=== PATIENT | female | born 1985 | race Two or more races ===

== ENCOUNTER 2019-05-14 18:18 | Emergency (ER) | payer OTHER ==
[2019-05-14 18:32] VITALS: BP 120/84; PULSE 108; TEMP 97.8; BMI 32.8
[2019-05-14 19:44] LABS: RBC 3.78 M/mm3 (3.60-5.2)
[2019-05-14 19:47] LABS: HEMATOCRIT 32.3 % (32.4-45.2); HEMOGLOBIN 10.7 GM/dl (10.7-15.3); MCH 28.4 pg (25.7-33.7); MCHC 33.3 g/dl (32.0-36.0); MEAN CELL VOLUME 85.5 fl (80-96); MEAN PLT VOLUME 9.7 fl (7.5-11.1); PLATELET COUNT 230 K/MM3 (134-434); RDW 12.3 % (11.6-15.6); WHITE BLOOD COUNT 7.6 K/mm3 (4.0-10.8)
[2019-05-14 19:48] LABS: ALBUMIN 2.9 g/dl (3.4-5.0); BILIRUBIN,TOTAL 0.4 mg/dl (0.2-1); CALCIUM 9.1 mg/dl (8.5-10); CREATININE 0.4 mg/dl (0.55-1.3); POTASSIUM 3.9 mmol/L (3.5-5.1); TOT PROT 6.5 g/dl (6.4-8.2)
[2019-05-14] MEDS ORDERED: hydrOXYzine PAMOATE 25 MG CAPSULE (FP) PO ONE ×2 (20:27→20:33)
--- NOTE | 2019-05-15 01:36 | PDOC ---
Documentation entered by Lorri Winter SCRIBE, acting as scribe for Michelle Swain MD. Michelle Swain MD: This documentation has been prepared by the robbieibeMoy Aiswarya, SCRIBE, under my direction and personally reviewed by me in its entirety. I confirm that the documentation accurately reflects all work, treatment, procedures, and medical decision making performed by me. History of Present Illness - General Chief Complaint: Itching Stated Complaint: ITCHING Time Seen by Provider: 05/14/19 19:15 - History of Present Illness Initial Comments: This 33-year-old [id number], third trimester (LMP 10/18/2018 EDC 07/25/2019 ), presents to the ER with persistent pruritus for the last several days. She had been seen by her doctorate of chiropractic, Dr. Delong with pruritus earlier in the week but was unable to see him earlier today prior to his leaving the area until next Monday (05/20). Patient states that she has taken 1 dose of Benadryl earlier today and had partial relief but now has recurrent generalized pruritus , especially severe on distal extremities. No rash, fever, nausea/vomiting ( other than mild baseline nausea). She has been having very dark urine for several days; she denies jaundiced skin or eyes. Patient has had previous pregnancies but no significant pruritus during either. 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 [employer] Past History - Past Medical History Allergies/Adverse Reactions: Allergies Allergy/AdvReac Type Severity Reaction Status Date / Time meperidine [From Demerol] Allergy Hives Verified 05/14/19 18:26 Home Medications: Ambulatory Orders Pnv No.121/Iron/Folic Acid [ Multivitamin Tablet] 1 each PO DAILY hydrOXYzine PAMOATE [Vistaril -] 25 mg PO TID PRN #15 capsule 05/14/19 COPD: No Other medical history: - Surgical History Cholecystectomy: Yes - Reproductive History Is Patient Now?: Yes (#): 5 Para: 4 - Psycho Social/Smoking Cessation Hx Smoking History: Never smoked Have you smoked in the past 12 months: No Information on smoking cessation initiated: No Hx Alcohol Use: No Review of Systems - Review of Systems Able to Perform ROS?: Yes Comments:: 12 point review of systems is negative except for what is noted in the history of present illness *Physical Exam - Vital Signs Last Vital Signs Temp Pulse Resp BP Pulse Ox 97.8 F 108 H 20 120/84 99 05/14/19 18:18 05/14/19 18:18 05/14/19 18:18 05/14/19 18:18 05/14/19 18:18 - Physical Exam Comments: GENERAL: Adult female, alert and oriented x3, in mild distress secondary to pruritus HEAD: Normal with no signs of trauma. EYES: PERRLA, EOMI, sclera anicteric, conjunctiva clear. ENT: Ears normal, nares patent, oropharynx clear without exudates. Moist mucous membranes. NECK: Normal range of motion, supple without lymphadenopathy, JVD, or masses. LUNGS: Breath sounds equal, clear to auscultation bilaterally. No wheezes, and no crackles. HEART:Regular rate and rhythm, normal S1 and S2 without murmur, rub or gallop. ABDOMEN:.normal bowel sounds; gravid without guarding,tenderness or rebound.No masses EXTREMITIES: Normal range of motion, no edema. No clubbing or cyanosis. No erythema, or tenderness. Scattered healing excoriations distal upper and lower extremities NEUROLOGICAL: Cranial nerves II through XII grossly intact. Normal speech. No focal neurological deficits. SKIN: No rash evident; no lesions evident except for noninflamed, well-healing shallow excoriations of the distal extremities as noted above ED Treatment Course - LABORATORY CBC & Chemistry Diagram: 05/14/19 19:15 05/14/19 19:15 - ADDITIONAL ORDERS Additional order review: Laboratory Results 05/14/19 05/14/19 19:15 19:15 Sodium 137 Potassium 3.9 Chloride 110 H Carbon Dioxide 22 Anion Gap 5 L BUN 6.0 L Creatinine 0.4 L Est GFR (CKD-EPI)AfAm 159.73 Est GFR (CKD-EPI)NonAf 137.82 Random Glucose 78 Calcium 9.1 Total Bilirubin 0.4 Direct Bilirubin 0.1 AST 50 H ALT 96 H Alkaline Phosphatase 251 H Total Protein 6.5 Albumin 2.9 L 05/14/19 19:15 RBC 3.78 MCV 85.5 MCHC 33.3 RDW 12.3 MPV 9.7 Medical Decision Making - Medical Decision Making This 33-year-old woman, third trimester presents with several day history of generalized pruritus without systemic signs or rash. She has been seen by her doctorate of chiropractic, Dr. Delong and has been taking Benadryl with partial relief. She presents for further evaluation. Differential diagnosis of this pruritus without associated rash or systemic symptoms includes pruritis secondary to cholestasis of or pruritus gravidarum (without elevation of bile acids or abnormalities in LFTs). CBC and chemistry profile was sent: Mild elevation of transaminases and alkaline phosphatase as well as mild anemia evident. Bile acid determination was not initially sent, since this test is sent to an outside laboratory and will take 2 to 3 days to complete. However, after reviewing the results of the CBC and chemistry profile with Dr. Delong ( reached by telephone out of town), bile acid levels are required for specific treatment of cholestasis of pruritus. Therefore, this test was added and will be pending for 2 to 3 days. Results discussed with the patient. She will be given hydroxyzine 25 mg by mouth now and prescription sent to her pharmacy. Meanwhile, while Dr. Delong is out of town, she should follow-up with his partner, Dr. Boyle with whom the patient is familiar. She should call the office tomorrow and arrange follow -up within the next 2 to 3 days. Discharge - Discharge Information Problems reviewed: Yes Clinical Impression/Diagnosis: Pruritus, Third trimester Condition: Stable Disposition: HOME - Additional Discharge Information Prescriptions: hydrOXYzine PAMOATE [Vistaril -] 25 mg PO TID PRN #15 capsule PRN Reason: For Itching - Follow up/Referral Referrals: Octavio Boyle MD [Staff Physician] - 2 Days - Patient Discharge Instructions Patient Printed Discharge Instructions: DI for Itching Additional Instructions: Hydroxyzine 25 mg up to 3 times a day as needed for itching Return to ER if you have nausea/vomiting, develop pain or if itching is severe Follow-up with within the next 2 to 3 days - Post Discharge Activity
== END 2019-05-14 20:41 | disposition home or self-care (01) ==
LOC: FER 18:18
DX: L29.9 Pruritus, unspecified (principal); O26.893 Other specified pregnancy related conditions, third trimester; Z88.8 Allergy status to other drugs, medicaments and biological substances
CPT/HCPCS: 36415; 80053; 82248; 82542; 85027; 99283-25

== ENCOUNTER 2019-07-03 08:15 | Inpatient (IN) | payer OTHER ==
[2019-07-03] MEDS ORDERED: OXYTOCIN 30 UNITS in 0.9% NS 30 UNIT/500 ML INFUS.BAG IVPB SCH (09:00)
[2019-07-03 09:10] LABS: BASO % 0.5 % (0-2.0); EOS % 0.9 % (0-4.5); HEMATOCRIT 30.7 % (32.4-45.2); HEMOGLOBIN 10.4 GM/dL (10.7-15.3); LYMPH % 19.2 % (8-40); MCH 27.9 pg (25.7-33.7); MCHC 33.7 g/dl (32.0-36.0); MEAN CELL VOLUME 82.8 fl (80-96); MEAN PLT VOLUME 10.5 fl (7.5-11.1); MONO % 10.5 % (3.8-10.2); NEUT % 68.9 % (42.8-82.8); PLATELET COUNT 193 K/MM3 (134-434); RBC 3.71 M/mm3 (3.60-5.2); WHITE BLOOD COUNT 6.2 K/mm3 (4.0-10.0)
--- NOTE | 2019-07-03 09:24 | HP ---
Past Medical History - Primary Care Physician PCP:: Ben Delong E - Admission History of Present Illness: Admitted for induction. P3, 37 wks. CHOLESTASIS OF , deteriorating, with severe pruritus, worsening labs and pelvic pain. MFM consultation done, in agreement. On Ursodiol, hydroxyzine. History Source: Patient, Caregiver Limitations to Obtaining History: No Limitations - Past Medical History Cardiovascular: No: AFIB, Aneurysm, Aortic Insufficiency, Aortic Stenosis, CAD, CHF, Deep Vein Thrombosis, HTN, Hyperlipdemia, LA, Mitral Insufficiency, Mitral Stenosis, Murmur, Pulmonary Hypertension, Other Pulmonary: No: Asthma, Bronchitis, Cancer, COPD, O2 Dependent, Pneumonia, Previously Intubated, Pulmonary Embolus, Pulmonary Fibrosis, Sleep Apnea, Other Gastrointestinal: No: Ascites, Cancer, Constipation, Crohn's Disease, Diverticulitis, Diverticulosis (cholestasis), Esophageal Varices, Gastritis, GERD, GI Bleed, Hemorrhoids, Hiatal Hernia, Inflamatory Bowel Disease, Irritable Bowel Disease, Pancreatitis, Peptic Ulcer Disease, Ulcerative Colitis , Other Renal/: No: Renal Failure, Renal Inusuff, BPH, Cancer, Hematuria, Hemodialysis , Neurogenic Bladder, Renal Calculi, UTI, Other Reproductive: No: Ectopic , Endometriosis, Fibroids, PID, Polycystic Ovary Syndrome, Postmenopausal, Other Heme/Onc: No: Anemia, B12 Deficiency, Bleeding Disorder, Cancer, Current Chemotherapy, Current Radiation Therapy, Hemochromatosis, Hypercoaguable State, Myeloproliferative Synd, Sickle Cell Disease, Sickle Cell Trait, Thrombocytopenia, Other Psych: No: Addictions, Anxiety, Bipolar, Depression, Panic, Psychosis, Schizophrenia, Other Musculoskeletal: No: Bursitis, Chronic low back pain, Hemiparesis, Hemiplegia, Osteoarthritis, Paraplegia, Other Rheumatology: No: Fibromyalgia, Gout, Lupus, Rheumatoid Arthritis, Sarcoidosis, Vasculitis, Other Endocrine: No: Gopi's Disease, Denys's Disease, Diabetes Insipidus, Diabetes Mellitus, Hyperparathyroidism, Hyperthyroidism, Hypothyroidism, Osteopenia, SIADH, Other Dermatology: No: Basal Cell, Cellulitis, Eczema, Melanoma, Psoriasis, Squamous Cell, Other - Past Surgical History Past Surgical History: No: None, AAA Repair, AICD, Amputation, Appendectomy, Arthrosocopy, AV Fistula/Graft, Bariatric Surgery, Breast Biopsy, Bypass, CABG, Carotid Endarterectomy, Cataract Removal, Cholecystectomy, Colectomy, Colonoscopy, Colostomy, Craniotomy, , Cystectomy, Hernia Repair, Hysterectomy, Ileal Conduit, Ileosotomy, Joint Replacement, Kidney Transplant, Laminectomy, Liver Transplant, Mastectomy, Nephrectomy, Oopherectomy, Orchiectomy, Permanent Pacemaker, Prostatectomy, Splenectomy, Stent, Thoracotomy , TURP, Tonsillectomy, Tubal Ligation, Upper Endoscopy, Valve Replacement, Vasectomy, Vein Stripping/Ligation Hx Myomectomy: No Hx Transabdominal Cerclage: No - Smoking History Smoking history: Never smoked Have you smoked in the past 12 months: No - Alcohol/Substance Use Hx Alcohol Use: No Home Medications - Allergies Allergies/Adverse Reactions: Allergies Allergy/AdvReac Type Severity Reaction Status Date / Time meperidine [From Demerol] Allergy Severe Hives Verified 06/25/19 08:34 shellfish derived Allergy Severe Hives Verified 06/25/19 08:34 - Home Medications Home Medications: Ambulatory Orders Pnv No.121/Iron/Folic Acid [ Multivitamin Tablet] 1 each PO DAILY hydrOXYzine PAMOATE [Vistaril -] 25 mg PO TID PRN #15 capsule 05/14/19 Ursodiol 500 mg PO DAILY 06/04/19 Review of Systems - Review of Systems Constitutional: denies: No Symptoms, Chills, Diaphoresis, Fever, Lethargy, Loss of Appetite, Malaise, Night Sweats, Unintentional Wgt. Loss, Weakness, Other Eyes: denies: No Symptoms, Blind Spots, Blurred Vision, Double Vision, Eye Pain , Floaters, Photophobia, Recent Change in Vision, Other HENT: denies: No Symptoms, Difficult Swallowing, Ear Discharge, Ear Pain, Epistaxis, Gingival Bleeding, Hearing Loss, Mouth Swelling, Nasal Congestion, Ocular Prosthesis, Throat Pain, Toothache, Ringing in Ears, Other Neck: denies: No Symptoms, Decreased ROM, Lumps, Pain on Movement, Stiffness, Swollen Glands, Tenderness, Other Cardiovascular: denies: No Symptoms, Chest Pain, Edema, Palpitations, Shortness of Breath, Other Respiratory: denies: No Symptoms, Cough, Exercise Intolerance, Hemoptysis, Orthopnea, PND (pelvic pain, deteriorating), Snoring, SOB, SOB on Exertion, Wheezing, Other Gastrointestinal: denies: No Symptoms, Abdominal Pain, Bloating, Constipation, Diarrhea, Dysphagia, Indigestion, Melena, Nausea, Rectal Bleeding, Vomiting, Vomiting Blood, Other Physical Exam - Maternity Constitutional: Yes: Well Nourished, No Distress, Calm Eyes: Yes: WNL, Conjunctiva Clear, EOM Intact HENT: Yes: WNL, Atraumatic, Normocephalic Neck: Yes: WNL, Supple, Trachea Midline Cardiovascular: Yes: WNL, Regular Rate and Rhythm Breast(s): Yes: WNL - Abdominal Exam/OB Number of Fetuses: Single Presentation: Vertex Contractions: No Monitor Mode: External Heart Rate (range): 138 Heart Rate Location: [facility] Category: I Accelerations: Uniform - Vaginal Exam/OB Vaginal Bleediing: No Speculum Exam: No Dilatation (cm): 1 Effacement (%): 20 Amniotic Membrane Status: Intact Station: -2 - Physical Exam Musculoskeletal: Yes: WNL Deep Tendon Reflex Grade: Normal +2 ...Motor Strength: WNL Psychiatric: Yes: WNL - Labs Lab Results: CBC, BMP 07/03/19 08:50 Imaging - Results Ultrasound: Report Reviewed (BPP 04/25.) Problem List - Problems (1) 37 weeks gestation of Code(s): Z3A.37 - 37 WEEKS GESTATION OF (2) Cholestasis during , antepartum Code(s): O26.619 - LIVER AND BILIARY TRACT DISORD IN , UNSP TRIMESTER; K83.1 - OBSTRUCTION OF BILE DUCT Assessment/Plan 37 weeks of gestation. Cholestatsis, deteriorating. Severe pruritus. BPP 04/25. On Ursodiol, hydroxyzine. Given betamethazone. For induction today. All fully discussed. MFM consult obtained with F/U. Patient understands and agrees with the plan. Pitocin started at 09:30 hrs.
[2019-07-03 09:32] LABS: BLOOD UREA NITROGEN 5.6 mg/dL (7-18); CALCIUM 9.1 mg/dL (8.5-10.1); CREATININE 0.6 mg/dL (0.55-1.3); POTASSIUM 3.6 mmol/L (3.5-5.1)
[2019-07-03 09:43] LABS: INR 1.05 (0.83-1.09); PROTHROMBIN TIME (PATIENT) 12.4 SEC (9.7-13.0)
[2019-07-03 09:46] LABS: ACTIVATED PTT 29.5 SECONDS (25.2-36.5)
[2019-07-03 09:49] VITALS: BMI 33.9
[2019-07-03] MEDS ORDERED: LACTATED RINGERS SOLUTION 1,000 ML IV SCH (11:30)
--- NOTE | 2019-07-03 15:10 | PN ---
Progress Note, Labor Vaginal Exam #2 Labor Exam Date: 07/03/19 Labor Exam Time: 14:50 Heart Rate (range): 140 Dilatation: 2 Effacement (%): 20 Station: -1 (AROM - clear.)
[2019-07-03] MEDS ORDERED: FENTANYL/BUPIVACAINE/NS/PF - PCEA - 50 ML DISP.SYRIN EP ONE ×2 (15:26→20:06)
[2019-07-03] MEDS ORDERED: NALOXONE HCL 0.4 MG/ML VIAL IVPUSH PRN (15:33)
[2019-07-03] MEDS ORDERED: BUPIVACAINE HCL/PF 0.5% (5 MG/ML) 30 ML VIAL IJ ONE (15:37)
[2019-07-03] MEDS ORDERED: LIDO 2%/EPI 1:200000 PRESRVFRE (20 ML SDVIAL) ONE (15:37)
[2019-07-03] MEDS: ELECTROLYTE-148 SOLN 1,000 ML IV SCH ×2 (15:40→16:32)
[2019-07-03] MEDS ORDERED: FENTANYL/BUPIVACAINE/NS/PF - PCEA - 50 ML DISP.SYRIN EP SCH (15:45)
--- NOTE | 2019-07-03 19:07 | PN ---
Progress Note, Labor Vaginal Exam #3 Labor Exam Date: 07/03/19 Labor Exam Time: 18:50 Heart Rate (range): 140 Dilatation: 3 Effacement (%): 20 Amniotic Membrane Status: Ruptured Presentation: Vertex/Position Station: -2 (Discussed options w patient. Will d/c Pitocin and resume early in AM. Afebrile. Excellent FH w accelerations.)
[2019-07-03] MEDS ORDERED: diphenhydrAMINE HCL 25 MG CAPSULE (FP) PO ONE ×2 (21:48→22:00)
[2019-07-04] MEDS ORDERED: FENTANYL/BUPIVACAINE/NS/PF - PCEA - 50 ML DISP.SYRIN EP ONE ×2 (01:08→05:41)
[2019-07-04] MEDS ORDERED: OXYTOCIN 30 UNITS in 0.9% NS 30 UNIT/500 ML INFUS.BAG IVPB SCH (07:45)
[2019-07-04] MEDS ORDERED: SODIUM CHLORIDE 100 ML IVPB ONE (08:15)
[2019-07-04] MEDS ORDERED: AMPICILLIN SODIUM 2 GM VIAL ONE (08:15)
--- NOTE | 2019-07-04 08:23 | PN ---
Progress Note, Labor Vaginal Exam #3 Labor Exam Date: 07/04/19 Labor Exam Time: 08:15 Heart Rate (range): 136 Dilatation: 3 Effacement (%): 20 Amniotic Membrane Status: Ruptured Presentation: Vertex/Position Station: -2 (Abx started.)
[2019-07-04] MEDS ORDERED: AMPICILLIN - 2 GM in SODIUM CHLORIDE 100 ML IVPB ONE (08:45)
[2019-07-04] MEDS ORDERED: CITRIC ACID/SODIUM CITRATE 30 ML UNIT-DOSE CUP PO ONE (09:39)
[2019-07-04] MEDS: ACETAMINOPHEN 1000 MG/100 ML VIAL (NON FORMULARY) IVPB PRN ×2 (09:45→21:30)
[2019-07-04] MEDS: ELECTROLYTE-148 SOLN 1,000 ML IV SCH (09:55)
[2019-07-04] MEDS ORDERED: IBUPROFEN 600 MG TABLET (FP) PO PRN ×2 (10:37→11:22)
[2019-07-04] MEDS ORDERED: ONDANSETRON 4 MG/2 ML VIAL IVPUSH PRN (10:37)
[2019-07-04] MEDS ORDERED: ACETAMINOPHEN 325 MG TABLET (FP) PO PRN (10:37)
[2019-07-04] MEDS ORDERED: OXYTOCIN 20 UNITS in 0.9% NS 20 UNIT/1,000 ML INFUS.BAG IV ONE ×2 (11:04→16:39)
--- NOTE | 2019-07-04 11:19 | PN ---
Progress Note, Labor Vaginal Exam #5 Labor Exam Date: 07/04/19 Labor Exam Time: 09:45 Heart Rate (range): 190 Dilatation: 3 Amniotic Membrane Status: Leaking Presentation: Vertex/Position Station: -2 (Tachykardia. Pt. is shivering. Impending chorioamnionitis. Nio progress. Will procede w c/section. Pt. understands and consents.)
[2019-07-04] MEDS ORDERED: oxyCODONE HCL 5 MG TABLET PO PRN (11:22)
[2019-07-04] MEDS ORDERED: METHYLERGONOVINE MALEATE 0.2 MG/1 ML AMP IM PRN (11:22)
--- NOTE | 2019-07-04 11:22 | PN ---
Delivery - Delivery Section: Primary Type of Anesthesia: Spinal EBL (cc): 650 Delivery, Single - Stages of Labor Date of Delivery: 07/04/19 - Condition of Awake Overnight Counselor/Customer Counter Associate Present: Yes Gender: Female Position: Left, OA - 1 Minute Total Score: 9 5 Minutes Total Score: 9 - Feeding Plan Initial Plan: Elected not to breastfeed exclusively throughout hospitalization Remarks - Remarks Remarks: Primary c/section. Female,7 lbs 2 oz. No complications.
[2019-07-04] MEDS ORDERED: ACETAMINOPHEN 1000 MG/100 ML VIAL (NON FORMULARY) IVPB PRN (11:26)
[2019-07-04] MEDS ORDERED: IBUPROFEN 800 MG/8 ML IJ IVPB ONE ×2 (12:24→12:27)
[2019-07-04] MEDS ORDERED: OXYTOCIN 20 UNITS in 0.9% NS 1000 ML INFUS.BAG IV ONE (13:26)
[2019-07-04] MEDS ORDERED: KETOROLAC TROMETHAMINE 30 MG/1 ML VIAL IVPUSH PRN (13:27)
--- NOTE | 2019-07-04 13:58 | OP ---
DATE OF OPERATION: DATE OF DICTATION: 07/03/2019 PREOPERATIVE DIAGNOSES: 1. Intrauterine at 37 weeks. 2. Cholestasis of . 3. Failed induction, arrest of labor, impending chorioamnionitis. POSTOPERATIVE DIAGNOSES: 1. Intrauterine at 37 weeks. 2. Cholestasis of . 3. Failed induction, arrest of labor, impending chorioamnionitis. PROCEDURE: Primary, low segment, transverse section. ANESTHESIOLOGIST: Jf James MD ANESTHESIA: Spinal. SURGEON: Ben Cade MD INDUST[employer] MECHANIC: PITO Gibson PROCEDURE AND FINDINGS: Under excellent spinal block in dorsal supine position, patient was prepped and draped in the normal fashion. Abdomen was entered through Pfannenstiel incision that was carried through the subcutaneous tissue and fascia transversely. Recti muscles were dissected off the fascia in the midline, and peritoneum was entered vertically. Term uterus was noted with lower uterine segment bulging with baby's head above the symphysis. Lower uterine segment was fairly thin. Bladder flap was incised and peeled downward. Hysterotomy was performed transversely and extended with bandage scissors. Clear amniotic fluid was noted. Female live was delivered, cried, and breathed spontaneously. Baby was given Apgars 9, 9. Baby's weight was 7 pounds 2 ounces. Placenta was removed, and uterine cavity was cleaned. Hysterotomy was closed with continuous running Biosyn 0 interlocking suture. Hemostasis was excellent. Uterus was placed anatomically in abdomen. Lavage was carried out. Hemostasis was again rechecked. Count was correct. Abdomen was closed in layers with peritoneum closed with continuous running Biosyn 2-0, fascia was continuous running Vicryl 1 sutures, subcutaneous tissue was approximated with interrupted 2-0 Biosyn sutures, and skin was closed with subcuticular V-Lock 4-0 running suture and Steri-Strips. Sterile dressing was applied and held with a binder. Urine was clear in the Askew catheter bag. Estimated blood loss was 650 mL. Patient was transferred to PACU stable and comfortable. BEN CADE MD [id number] MTDD
[2019-07-04] MEDS ORDERED: AMPICILLIN - 1 GM in SODIUM CHLORIDE 100 ML IVPB SCH (14:00)
[2019-07-04] MEDS ORDERED: CEFAZOLIN 2 GM/D5W 2 GM/50 ML ML IVPB ONE (16:38)
[2019-07-04] MEDS: OXYTOCIN 20 UNITS in 0.9% NS 20 UNIT/1,000 ML INFUS.BAG IV SCH ×2 (16:53→23:00)
[2019-07-04] MEDS: CEFAZOLIN 2 GM/D5W 2 GM/50 ML ML IVPB SCH (17:31)
[2019-07-04] MEDS ORDERED: KETOROLAC TROMETHAMINE 30 MG/1 ML VIAL ONE (18:11)
[2019-07-04] MEDS ORDERED: ACETAMINOPHEN INJECTION 100 ML IVPB ONE (21:33)
[2019-07-05] MEDS ORDERED: CEFAZOLIN 2 GM/D5W 2 GM/50 ML ML IVPB ONE ×2 (00:26→10:58)
[2019-07-05] MEDS ORDERED: IBUPROFEN 800 MG/8 ML IJ IVPB ONE ×2 (01:03→01:30)
[2019-07-05] MEDS: CEFAZOLIN 2 GM/D5W 2 GM/50 ML ML IVPB SCH ×2 (02:10→10:45)
[2019-07-05] MEDS ORDERED: DEXTROSE 5%-LACTATED RINGERS 1,000 ML IV SCH (04:30)
[2019-07-05] MEDS ORDERED: ACETAMINOPHEN INJECTION 100 ML IVPB ONE (05:55)
[2019-07-05] MEDS: ACETAMINOPHEN 1000 MG/100 ML VIAL (NON FORMULARY) IVPB PRN (06:00)
[2019-07-05] MEDS ORDERED: oxyCODONE HCL 5 MG TABLET ONE ×2 (07:27→11:35)
[2019-07-05] MEDS ORDERED: IBUPROFEN 600 MG TABLET (FP) PO ONE ×2 (07:27→13:17)
[2019-07-05] MEDS: IBUPROFEN 600 MG TABLET (FP) PO PRN ×2 (07:40→18:42)
[2019-07-05 08:51] LABS: BASO % 0.3 % (0-2.0); EOS % 0.1 % (0-4.5); HEMATOCRIT 22.4 % (32.4-45.2); HEMOGLOBIN 7.6 GM/dL (10.7-15.3); LYMPH % 4.9 % (8-40); MEAN CELL VOLUME 82.4 fl (80-96); MEAN PLT VOLUME 10.3 fl (7.5-11.1); MONO % 6.8 % (3.8-10.2); NEUT % 87.9 % (42.8-82.8); PLATELET COUNT 126 K/MM3 (134-434); RBC 2.72 M/mm3 (3.60-5.2); WHITE BLOOD COUNT 6.4 K/mm3 (4.0-10.0)
--- NOTE | 2019-07-05 09:00 | PN ---
Progress Note, Physician Chief Complaint: s/p c section under spinal anesthesia History of Present Illness: post op day one, with duramorph for post op pain control - Current Medication List Current Medications: Active Medications Acetaminophen (Ofirmev Injection -) 1,000 mg IVPB Q6H PRN PRN Reason: FEVER Last Admin: 07/05/19 06:00 Dose: 1,000 mg Acetaminophen (Tylenol -) 650 mg PO Q4H PRN PRN Reason: PAIN 1-3; IF MOTRIN NOT WORK Bisacodyl (Dulcolax Suppository -) 10 mg RC PRN PRN PRN Reason: CONSTIPATION Diphenhydramine HCl (Benadryl Injection -) 25 mg IVPUSH Q4H PRN PRN Reason: Pruritis Last Admin: 07/05/19 02:50 Dose: 25 mg Cefazolin Sodium/Dextrose (Ancef 2 Gm Premixed Ivpb -) 2 gm in 50 mls @ 100 mls /hr IVPB Q8H-IV FITO Stop: 07/05/19 17:59 Last Admin: 07/05/19 02:10 Dose: 100 mls/hr Dextrose/Lactated Ringer's (D5-Lr -) 1,000 mls @ 125 mls/hr IV ASDIR FITO Last Admin: 07/05/19 06:00 Dose: 125 mls/hr Ibuprofen (Motrin -) 600 mg PO Q4H PRN PRN Reason: PAIN LEVEL 1 - 3 Last Admin: 07/05/19 07:40 Dose: 600 mg Ketorolac Tromethamine (Toradol Injection -) 30 mg IVPUSH Q6H PRN PRN Reason: PAIN LEVEL 4 - 6 Stop: 07/05/19 13:26 Last Admin: 07/04/19 18:16 Dose: 30 mg Methylergonovine Maleate (Methergine Injection -) 0.2 mg IM Q4H PRN PRN Reason: Excessive Bleeding (L&D) Ondansetron HCl (Zofran Injection) 4 mg IVPUSH Q4H PRN PRN Reason: NAUSEA Oxycodone HCl (Roxicodone -) 5 mg PO Q6H PRN PRN Reason: PAIN LEVEL 7-10 Last Admin: 07/05/19 07:40 Dose: 5 mg Multivit/Folic Acid/Iron ( Vitamins (Sjr) -) 1 tab PO DAILY FITO Simethicone (Mylicon -) 80 mg PO Q4H PRN PRN Reason: GAS - Objective Vital Signs: Vital Signs Temperature 98.8 F 07/05/19 08:00 Pulse Rate 109 H 07/05/19 08:00 Respiratory Rate 20 07/05/19 08:00 Blood Pressure 115/72 07/05/19 08:00 O2 Sat by Pulse Oximetry (%) 99 07/04/19 12:45 Constitutional: Yes: Well Nourished, Mild Distress Cardiovascular: Yes: WNL Respiratory: Yes: WNL Gastrointestinal: Yes: WNL Labs: CBC, BMP 07/03/19 08:27 INR, PTT INR 1.05 (0.83-1.09) 07/03/19 08:50 Assessment/Plan patient complaining of pain this am not helped by 5 mg of oxycodone, also has fevers that is being treated by the primary team. advised nurse to give additional 5mg oxycodone, otherwise no further intervention from the dept of anesthesia at this time.
[2019-07-05] MEDS ORDERED: BENZOCAINE/MENTH/CETYLPYRD CL 1 EACH LOZENGE MM PRN (09:34)
[2019-07-05] MEDS ORDERED: oxyCODONE HCL 5 MG TABLET PO PRN (09:41)
--- NOTE | 2019-07-05 10:08 | PN ---
Progress Note (short form) - Note Progress Note: POD1, s/p c section Pt seen and examined in L&D room 5, reports significant abdo pain mildly improved with oral regimen. Had fevers overnight, improved with IV Tylenol. Was oob ambulating, voiding without issue, denies dysuria, foul odor. Tolerating small amounts of PO with no n/v. Denies cp/sob. Endorses sore throat and cold sxs since 2 days prior to delivery. Vital Signs Temp 98.8 F 07/05/19 08:00 Pulse 109 H 07/05/19 08:00 Resp 20 07/05/19 08:00 BP 115/72 07/05/19 08:00 Pulse Ox 99 07/04/19 12:45 Intake & Output 07/04/19 07/04/19 07/05/19 11:59 23:59 11:59 Intake Total 1999 2300 1375 Output Total 0064 992 9322 Balance 600 1900 -25 Intake: IV 2000 1850 925 NORMAL SALINE+20 UNITS 1850 925 OXYTOCIN - 20 unit In 1, 000 ml @ 125 mls/hr IV ASDIR FITO Rx#:[id number] Plasma-Lyte 148 - 1,000 2000 ml @ 500 mls/hr IV ASDIR FITO Rx#:[id number] IVPB 450 450 Output: Urine 9546 903 2170 Askew 6855 394 0478 Void 300 Other: Voiding Method Indwelling Catheter Toilet Weight 7 lb 2 oz Length 20 in CBC, BMP 07/05/19 08:07 07/03/19 08:27 Gen: awake, alert, nad Throat: no erythema noted Resp: unlabored on RA Abdo: binder in place, wound c/d/i, steristrips in place, no erythema or drainage noted. Abdo seems to be tender (pt refusing exam due to pain). +bowel sounds A/P: 33 y/o F admitted for induction at 37wks, pt with cholestasis of and worsening labs, pt failed trial of induction developed fevers with concern for chorioamnionitis now POD 1, s/p c section. ++ fevers overnight, tmax 103F at 1AM. No leukocytosis on morning labs H/H decreased (pt with significant blood loss during section) Endorses sore throat -RSV, influenza A&B, strep cultures ordered -UA with reflex ordered -ID consult- Dr Vidal (pt on 24 hrs of Ancef will likely need broad spectrum abx) -Continue IVF -Pain control as ordered -OOb ad birdie -Regular diet -If pt develops further fevers will order full fever workup -Cepachol ordered -Keep binder in place -Incentive spirometer q1hr -Will f/u this afternoon d/w attending Dr Delong
[2019-07-05] MEDS: DOCUSATE SODIUM 100 MG CAPSULE (FP) PO SCH ×2 (11:00→21:06)
[2019-07-05] MEDS: PRENATAL VITAMINS W/ FOLIC ACID TABLET (FP) PO SCH (11:00)
[2019-07-05] MEDS: FERROUS SO4 325 MG TABLET (FP) PO SCH (11:00)
[2019-07-05 11:18] LABS: EPI CELLS 25.7 /HPF (0-5/HPF); HYALINE CASTS 4 /lpf (0-8); PH,URINE 5.5 (5.0-8.0); URINE APPEARANCE CLOUDY; URINE BACTERIA 4.5 /hpf (NEGATIVE); URINE BILIRUBIN NEGATIVE (NEGATIVE); URINE COLOR RED; URINE GLUCOSE (UA) NEGATIVE (NEGATIVE); URINE KETONE NEGATIVE (NEGATIVE); URINE LEUK ESTERASE 1+ (NEGATIVE); URINE NITRITE NEGATIVE (NEGATIVE); URINE PROTEIN 2+ (NEGATIVE); URINE RBC 1633 /hpf (0-4); URINE UROBILINOGEN 0.2 mg/dL (0.2-1.0); URINE WBC 53 /hpf (0-5)
[2019-07-05] MEDS ORDERED: BISACODYL 10 MG SUPP.RECT RC PRN (11:22)
[2019-07-05] MEDS ORDERED: ACETAMINOPHEN 325 MG TABLET (FP) ONE (11:34)
[2019-07-05] MEDS: oxyCODONE HCL 5 MG TABLET PO PRN ×2 (12:06→18:41)
[2019-07-05] MEDS: ACETAMINOPHEN 325 MG TABLET (FP) PO PRN (12:06)
--- NOTE | 2019-07-05 12:41 | CON.ID ---
Consult Consult Specialty:: infectious diseases Referred by:: global category manager Reason for Consultation:: fever,throat pain - History of Present Illness Chief Complaint: fever,shivering throat pain History of Present Illness: relatively healthy 37 wks.preganant lady admitted for induction and had csection done for CHOLESTASIS OF , deteriorating, with severe pruritus, worsening labs and pelvic pain. MFM consultation done, in agreement. seems patient spiked fevers during delivery and is still spiking fever.also she was c/o of throat pain and the throat was infflamed. patient had rapid strep negative currently patient is shivering and says she does not feel well - History Source History Provided By: Patient Limitations to Obtaining History: No Limitations - Past Medical History Cardio/Vascular: No: AFIB, Aneurysm, Aortic Insufficiency, Aortic Stenosis, CAD , CHF, Deep Vein Thrombosis, HTN, Hyperlipdemia, [place], Mitral Insufficiency, Mitral Stenosis, Murmur, Pulmonary Hypertension, Other Pulmonary: No: Asthma, Bronchitis, Cancer, COPD, O2 Dependent, Pneumonia, Previously Intubated, Pulmonary Embolus, Pulmonary Fibrosis, Sleep Apnea, Other Gastrointestinal: No: Ascites, Cancer, Constipation, Crohn's Disease, Diverticulitis, Diverticulosis (cholestasis), Esophageal Varices, Gastritis, GERD, GI Bleed, Hemorrhoids, Hiatal Hernia, Inflamatory Bowel Disease, Irritable Bowel Disease, Pancreatitis, Peptic Ulcer Disease, Ulcerative Colitis , Other Renal/: No: Renal Failure, Renal Inusuff, BPH, Cancer, Hematuria, Hemodialysis , Neurogenic Bladder, Renal Calculi, UTI, Other ...LMP: 10/18/18 Psych: No: Addictions, Anxiety, Bipolar, Depression, Panic, Psychosis, Schizophrenia, Other Musculoskeletal: No: Bursitis, Chronic low back pain, Hemiparesis, Hemiplegia, Osteoarthritis, Paraplegia, Other Rheumatology: No: Fibromyalgia, Gout, Lupus, Rheumatoid Arthritis, Sarcoidosis, Vasculitis, Other Endocrine: No: Gopi's Disease, Denys's Disease, Diabetes Insipidus, Diabetes Mellitus, Hyperparathyroidism, Hyperthyroidism, Hypothyroidism, Osteopenia, SIADH, Other Dermatology: No: Basal Cell, Cellulitis, Eczema, Melanoma, Psoriasis, Squamous Cell, Other - Past Surgical History Past Surgical History: No: None, AAA Repair, AICD, Amputation, Appendectomy, Arthrosocopy, AV Fistula/Graft, Bariatric Surgery, Breast Biopsy, Bypass, CABG, Carotid Endarterectomy, Cataract Removal, Cholecystectomy, Colectomy, Colonoscopy, Colostomy, Craniotomy, , Cystectomy, Hernia Repair, Hysterectomy, Ileal Conduit, Ileosotomy, Joint Replacement, Kidney Transplant, Laminectomy, Liver Transplant, Mastectomy, Nephrectomy, Oopherectomy, Orchiectomy, Permanent Pacemaker, Prostatectomy, Splenectomy, Stent, Thoracotomy , TURP, Tonsillectomy, Tubal Ligation, Upper Endoscopy, Valve Replacement, Vasectomy, Vein Stripping/Ligation - Alcohol/Substance Use Hx Alcohol Use: No - Smoking History Smoking history: Never smoked Have you smoked in the past 12 months: No Home Medications - Allergies Allergies/Adverse Reactions: Allergies Allergy/AdvReac Type Severity Reaction Status Date / Time meperidine [From Demerol] Allergy Severe Hives Verified 07/03/19 09:33 shellfish derived Allergy Severe Hives Verified 07/03/19 09:33 - Home Medications Home Medications: Ambulatory Orders Pnv No.121/Iron/Folic Acid [ Multivitamin Tablet] 1 each PO DAILY Ursodiol 1 tab PO TID 06/04/19 Docusate Sodium [Colace] 100 mg PO BID #20 capsule 07/04/19 Ibuprofen 600 mg PO Q6H PRN #20 tablet 07/04/19 Iron,Carbonyl/Ascorbic Acid [Iron 100-Vitamin C Tablet] 1 each PO DAILY #30 tablet 07/04/19 oxyCODONE HCL [Roxicodone -] 5 mg PO Q6H PRN #15 tablet MDD 5 07/04/19 Review of Systems - Review of Systems Constitutional: reports: Chills, Fever Eyes: reports: No Symptoms HENT: reports: No Symptoms Neck: reports: Other (throat pain) Cardiovascular: reports: No Symptoms Respiratory: reports: No Symptoms Gastrointestinal: reports: Abdominal Pain Musculoskeletal: reports: No Symptoms Integumentary: reports: No Symptoms Neurological: reports: No Symptoms Endocrine: reports: No Symptoms Hematology/Lymphatic: reports: No Symptoms Psychiatric: reports: No Symptoms Physical Exam Vital Signs: Vital Signs Temperature 98.8 F 07/05/19 12:00 Pulse Rate 95 H 07/05/19 12:00 Respiratory Rate 20 07/05/19 12:00 Blood Pressure 135/86 07/05/19 12:00 O2 Sat by Pulse Oximetry (%) 99 07/04/19 12:45 Constitutional: Yes: Well Nourished, Calm, Mild Distress Eyes: Yes: Conjunctiva Clear, EOM Intact HENT: Yes: Atraumatic, Normocephalic Neck: Yes: Supple, Trachea Midline Cardiovascular: Yes: Regular Rate and Rhythm Respiratory: Yes: Regular, CTA Bilaterally Gastrointestinal: Yes: Normal Bowel Sounds, Soft Musculoskeletal: Yes: WNL Extremities: Yes: WNL Wound/Incision: Yes: Clean/Dry, Steri Strips, Dressing Dry and Intact Neurological: Yes: Alert, Oriented Psychiatric: Yes: Alert, Oriented Labs: CBC, BMP 07/05/19 08:07 07/03/19 08:27 Assessment/Plan this patient post delivery who has been spiking fevers now on cefazolin currently she is afebrile i have ordered a blood cx and also chest xray await for rest of the results will continue cefazolin for now if patient spikes fever please send blood cx again also monitor fever curve rest as per the team if spikes fever will broaden coverage
[2019-07-05] MEDS: PIPERACILLIN/TAZOB 3.375 GM 3.375 GM in DEXTROSE 5%-WATER - 50 ML IVPB SCH (17:29)
[2019-07-05] MEDS: SIMETHICONE 80 MG TAB.CHEW (FP) PO PRN (18:41)
[2019-07-06] MEDS: oxyCODONE HCL 5 MG TABLET PO PRN ×3 (00:14→21:13)
[2019-07-06] MEDS: SIMETHICONE 80 MG TAB.CHEW (FP) PO PRN ×4 (00:14→21:14)
[2019-07-06] MEDS: IBUPROFEN 600 MG TABLET (FP) PO PRN ×2 (00:15→05:44)
[2019-07-06] MEDS: PIPERACILLIN/TAZOB 3.375 GM 3.375 GM in DEXTROSE 5%-WATER - 50 ML IVPB SCH ×3 (01:43→23:03)
[2019-07-06] MEDS: ACETAMINOPHEN 325 MG TABLET (FP) PO PRN ×4 (01:43→21:12)
[2019-07-06 09:33] LABS: BASO % 0.3 % (0-2.0); EOS % 3.1 % (0-4.5); HEMATOCRIT 22.1 % (32.4-45.2); HEMOGLOBIN 7.3 GM/dL (10.7-15.3); LYMPH % 15.4 % (8-40); MCH 27.7 pg (25.7-33.7); MEAN CELL VOLUME 84.1 fl (80-96); MEAN PLT VOLUME 10.4 fl (7.5-11.1); MONO % 10.5 % (3.8-10.2); NEUT % 70.7 % (42.8-82.8); PLATELET COUNT 150 K/MM3 (134-434); RBC 2.63 M/mm3 (3.60-5.2); RDW 13.2 % (11.6-15.6); WHITE BLOOD COUNT 5.4 K/mm3 (4.0-10.0)
[2019-07-06] MEDS: POLYETHYLENE GLYCOL 3350 119 GM BTL PO SCH (09:47)
[2019-07-06] MEDS: DOCUSATE SODIUM 100 MG CAPSULE (FP) PO SCH ×2 (09:47→22:35)
[2019-07-06] MEDS: FERROUS SO4 325 MG TABLET (FP) PO SCH (09:48)
[2019-07-06] MEDS: PRENATAL VITAMINS W/ FOLIC ACID TABLET (FP) PO SCH (09:48)
[2019-07-06 10:10] LABS: ALBUMIN 1.8 g/dl (3.4-5.0); BILIRUBIN,TOTAL 0.2 mg/dL (0.2-1); BLOOD UREA NITROGEN 5.7 mg/dL (7-18); CALCIUM 7.9 mg/dL (8.5-10.1); CREATININE 0.6 mg/dL (0.55-1.3); POTASSIUM 3.6 mmol/L (3.5-5.1); TOT PROT 4.4 g/dl (6.4-8.2)
--- NOTE | 2019-07-06 11:43 | PN ---
Progress Note, Physician History of Present Illness: stable afebrile - Current Medication List Current Medications: Active Medications Acetaminophen (Ofirmev Injection -) 1,000 mg IVPB Q6H PRN PRN Reason: FEVER Last Admin: 07/05/19 06:00 Dose: 1,000 mg Acetaminophen (Tylenol -) 650 mg PO Q4H PRN PRN Reason: PAIN 1-3; IF MOTRIN NOT WORK Last Admin: 07/06/19 05:45 Dose: 650 mg Benzocaine/Menthol (Cepacol Lozenge -) 1 each MM PRN PRN PRN Reason: SORE THROAT Bisacodyl (Dulcolax Suppository -) 10 mg RC PRN PRN PRN Reason: CONSTIPATION Diphenhydramine HCl (Benadryl Injection -) 25 mg IVPUSH Q4H PRN PRN Reason: Pruritis Last Admin: 07/05/19 16:16 Dose: 25 mg Docusate Sodium (Colace -) 100 mg PO BID [facility] Last Admin: 07/06/19 09:47 Dose: 100 mg Ferrous Sulfate (Feosol -) 325 mg PO DAILY [facility] Last Admin: 07/06/19 09:48 Dose: 325 mg Dextrose/Lactated Ringer's (D5-Lr -) 1,000 mls @ 125 mls/hr IV ASDIR [facility]O Last Admin: 07/05/19 06:00 Dose: 125 mls/hr Piperacillin Sod/Tazobactam (Sod 3.375 gm/ Dextrose) 50 mls @ 100 mls/hr IVPB Q8H-IV FITO; Protocol Stop: 07/06/19 17:59 Last Admin: 07/06/19 10:11 Dose: 100 mls/hr Ibuprofen (Motrin -) 600 mg PO Q4H PRN PRN Reason: PAIN LEVEL 1 - 3 Last Admin: 07/06/19 05:44 Dose: 600 mg Methylergonovine Maleate (Methergine Injection -) 0.2 mg IM Q4H PRN PRN Reason: Excessive Bleeding (L&D) Ondansetron HCl (Zofran Injection) 4 mg IVPUSH Q4H PRN PRN Reason: NAUSEA Oxycodone HCl (Roxicodone -) 10 mg PO Q6H PRN PRN Reason: PAIN LEVEL 7 - 10 Last Admin: 07/06/19 00:14 Dose: 10 mg Oxycodone HCl (Roxicodone -) 5 mg PO Q6H PRN PRN Reason: PAIN LEVEL 1-5 Polyethylene Glycol (Miralax (For Daily Use) -) 17 gm PO DAILY [facility] Last Admin: 07/06/19 09:47 Dose: 17 g Multivit/Folic Acid/Iron ( Vitamins (Sjr) -) 1 tab PO DAILY FITO Last Admin: 07/06/19 09:48 Dose: 1 tab Simethicone (Mylicon -) 80 mg PO Q4H PRN PRN Reason: GAS Last Admin: 07/06/19 05:46 Dose: 80 mg - Objective Vital Signs: Vital Signs Temperature 98.1 F 07/06/19 01:46 Pulse Rate 95 H 07/06/19 01:46 Respiratory Rate 20 07/06/19 01:46 Blood Pressure 133/85 07/06/19 01:46 O2 Sat by Pulse Oximetry (%) 99 07/04/19 12:45 Constitutional: Yes: No Distress, Calm Cardiovascular: Yes: S1, S2 Respiratory: Yes: Regular, CTA Bilaterally Gastrointestinal: Yes: Normal Bowel Sounds, Soft Musculoskeletal: Yes: WNL Extremities: Yes: WNL Neurological: Yes: Alert, Oriented Psychiatric: Yes: Alert, Oriented Labs: CBC, BMP 07/06/19 08:33 07/06/19 08:33 INR, PTT INR 1.05 (0.83-1.09) 07/03/19 08:50 Assessment/Plan post fever uti weakness headaches plan continue current mgmt await for blood cx monitor fever rest as per the team
--- NOTE | 2019-07-06 20:42 | PN ---
Progress Note (short form) - Note Progress Note: PO#2. Afebrile. Feels better. Pain under control most of the time. Nursing. Pruritus is gone! PE OK. Abd, soft, minimally tender. Wound clean and dry. Uterus well contracted. No CVA, extrem T. I/P: Recovering well. Observe [id number] hrs before discharge. Problem List - Problems (1) 37 weeks gestation of Code(s): Z3A.37 - 37 WEEKS GESTATION OF (2) Cholestasis during , antepartum Code(s): O26.619 - LIVER AND BILIARY TRACT DISORD IN , UNSP TRIMESTER; K83.1 - OBSTRUCTION OF BILE DUCT (3) fever Code(s): O86.4 - PYREXIA OF UNKNOWN ORIGIN FOLLOWING DELIVERY
[2019-07-06] MEDS ORDERED: PIPERACILLIN/TAZOB 3.375 GM 3.375 GM in DEXTROSE 5%-WATER - 50 ML IVPB SCH (22:00)
[2019-07-07] MEDS: SIMETHICONE 80 MG TAB.CHEW (FP) PO PRN ×2 (04:54→09:10)
[2019-07-07] MEDS: oxyCODONE HCL 5 MG TABLET PO PRN ×3 (04:55→19:40)
[2019-07-07] MEDS: ACETAMINOPHEN 325 MG TABLET (FP) PO PRN ×2 (04:55→09:08)
[2019-07-07] MEDS: PIPERACILLIN/TAZOB 3.375 GM 3.375 GM in DEXTROSE 5%-WATER - 50 ML IVPB SCH (06:35)
--- NOTE | 2019-07-07 07:19 | PN ---
Progress Note (short form) - Note Progress Note: POD # 3. Afebrile, feels much better. Finishing Zosyn today. Baby is OK, sugars are getting stable. PE OK. Wound clean. No CVA, extrem. T. I/P: recovering. Anticipating discharge tomorrow. Problem List - Problems (1) 37 weeks gestation of Code(s): Z3A.37 - 37 WEEKS GESTATION OF (2) Cholestasis during , antepartum Code(s): O26.619 - LIVER AND BILIARY TRACT DISORD IN , UNSP TRIMESTER; K83.1 - OBSTRUCTION OF BILE DUCT (3) fever Code(s): O86.4 - PYREXIA OF UNKNOWN ORIGIN FOLLOWING DELIVERY
[2019-07-07 08:59] LABS: BASO % 0.5 % (0-2.0); EOS % 2.9 % (0-4.5); HEMATOCRIT 23.5 % (32.4-45.2); HEMOGLOBIN 7.7 GM/dL (10.7-15.3); MCH 27.5 pg (25.7-33.7); MCHC 32.8 g/dl (32.0-36.0); MEAN CELL VOLUME 83.8 fl (80-96); MEAN PLT VOLUME 10.3 fl (7.5-11.1); MONO % 8.1 % (3.8-10.2); NEUT % 70.5 % (42.8-82.8); PLATELET COUNT 205 K/MM3 (134-434); RBC 2.81 M/mm3 (3.60-5.2); RDW 13.6 % (11.6-15.6); WHITE BLOOD COUNT 6.7 K/mm3 (4.0-10.0)
[2019-07-07] MEDS: POLYETHYLENE GLYCOL 3350 119 GM BTL PO SCH (09:36)
[2019-07-07] MEDS: FERROUS SO4 325 MG TABLET (FP) PO SCH (09:36)
[2019-07-07] MEDS: DOCUSATE SODIUM 100 MG CAPSULE (FP) PO SCH ×2 (09:36→22:57)
[2019-07-07] MEDS: PRENATAL VITAMINS W/ FOLIC ACID TABLET (FP) PO SCH (09:36)
--- NOTE | 2019-07-07 18:46 | PN ---
Progress Note, Physician History of Present Illness: Pt feels well. Now afebrile. No specific complaints. - Current Medication List Current Medications: Active Medications Acetaminophen (Ofirmev Injection -) 1,000 mg IVPB Q6H PRN PRN Reason: FEVER Last Admin: 07/05/19 06:00 Dose: 1,000 mg Acetaminophen (Tylenol -) 650 mg PO Q4H PRN PRN Reason: PAIN 1-3; IF MOTRIN NOT WORK Last Admin: 07/07/19 09:08 Dose: 650 mg Amoxicillin/Clavulanate Potassium (Augmentin - 875mg Tablet) 1 tab PO BID@0800, 1730 [facility] Benzocaine/Menthol (Cepacol Lozenge -) 1 each MM PRN PRN PRN Reason: SORE THROAT Bisacodyl (Dulcolax Suppository -) 10 mg RC PRN PRN PRN Reason: CONSTIPATION Diphenhydramine HCl (Benadryl Injection -) 25 mg IVPUSH Q4H PRN PRN Reason: Pruritis Last Admin: 07/05/19 16:16 Dose: 25 mg Docusate Sodium (Colace -) 100 mg PO BID [facility] Last Admin: 07/07/19 09:36 Dose: 100 mg Ferrous Sulfate (Feosol -) 325 mg PO DAILY [facility] Last Admin: 07/07/19 09:36 Dose: 325 mg Dextrose/Lactated Ringer's (D5-Lr -) 1,000 mls @ 125 mls/hr IV ASDIR [facility] Last Admin: 07/05/19 06:00 Dose: 125 mls/hr Ibuprofen (Motrin -) 600 mg PO Q4H PRN PRN Reason: PAIN LEVEL 1 - 3 Last Admin: 07/06/19 05:44 Dose: 600 mg Methylergonovine Maleate (Methergine Injection -) 0.2 mg IM Q4H PRN PRN Reason: Excessive Bleeding (L&D) Ondansetron HCl (Zofran Injection) 4 mg IVPUSH Q4H PRN PRN Reason: NAUSEA Oxycodone HCl (Roxicodone -) 10 mg PO Q6H PRN PRN Reason: PAIN LEVEL 7 - 10 Last Admin: 07/07/19 09:07 Dose: 10 mg Oxycodone HCl (Roxicodone -) 5 mg PO Q6H PRN PRN Reason: PAIN LEVEL 1-5 Polyethylene Glycol (Miralax (For Daily Use) -) 17 gm PO DAILY [facility] Last Admin: 07/07/19 09:36 Dose: 17 g Multivit/Folic Acid/Iron ( Vitamins (Sjr) -) 1 tab PO DAILY [facility] Last Admin: 07/07/19 09:36 Dose: 1 tab Simethicone (Mylicon -) 80 mg PO Q4H PRN PRN Reason: GAS Last Admin: 07/07/19 09:10 Dose: 80 mg - Objective Vital Signs: Vital Signs Temperature 98 F 07/07/19 10:00 Pulse Rate 88 07/07/19 10:00 Respiratory Rate 20 07/07/19 10:00 Blood Pressure 125/78 07/07/19 10:00 O2 Sat by Pulse Oximetry (%) 99 07/04/19 12:45 Constitutional: Yes: No Distress, Calm HENT: Yes: Atraumatic Cardiovascular: Yes: Regular Rate and Rhythm Respiratory: Yes: Regular Gastrointestinal: Yes: Normal Bowel Sounds, Soft Genitourinary: Yes: WNL Extremities: Yes: WNL Integumentary: Yes: WNL Neurological: Yes: Alert, Oriented Labs: CBC, BMP 07/07/19 07:40 07/06/19 08:33 INR, PTT INR 1.05 (0.83-1.09) 07/03/19 08:50 Microbiology 07/05/19 19:30 Blood - Peripheral Venous Blood Culture - Preliminary NO GROWTH OBTAINED AFTER 24 HOURS, INCUBATION TO CONTINUE FOR 4 DAYS. 07/05/19 19:45 Blood - Peripheral Venous Blood Culture - Preliminary NO GROWTH OBTAINED AFTER 24 HOURS, INCUBATION TO CONTINUE FOR 4 DAYS. 07/05/19 11:15 Urine - Urine Clean Catch Urine Culture - Final Group D Strep Or Entero Coccus 07/05/19 10:53 Throat Throat Culture - Final NO BETA HEMOLYTIC STREPTOCOCCI ISOLATED Problem List - Problems (1) 37 weeks gestation of Code(s): Z3A.37 - 37 WEEKS GESTATION OF (2) Cholestasis during , antepartum Code(s): O26.619 - LIVER AND BILIARY TRACT DISORD IN , UNSP TRIMESTER; K83.1 - OBSTRUCTION OF BILE DUCT (3) fever Code(s): O86.4 - PYREXIA OF UNKNOWN ORIGIN FOLLOWING DELIVERY (4) Pruritus Code(s): L29.9 - PRURITUS, UNSPECIFIED Assessment/Plan Fever Bacteriuria -- Fevers have resolved, blood cultures neg 24 -- will switch to Augmentin po BID , suggest continue x 4 days
[2019-07-07] MEDS: IBUPROFEN 600 MG TABLET (FP) PO PRN (19:42)
[2019-07-07] MEDS: AMOX TR/POT CLAV 875MG/125MG TABLETS (FP) PO SCH (19:44)
--- NOTE | 2019-07-08 08:57 | PN ---
Progress Note (short form) - Note Progress Note: POD 4, s/p c section Pt seen and examined. Doing well post op. No issues overnight. Tolerating PO, ambulating in halls without issue. Fevers have resolved. Voiding without issue. Passing flatus, no BM yet. Denies cp/sob. Vital Signs Temp 97.5 F L 07/07/19 22:00 Pulse 85 07/07/19 22:00 Resp 20 07/07/19 22:00 BP 133/80 07/07/19 22:00 Pulse Ox 99 07/04/19 12:45 Intake & Output 07/07/19 07/07/19 07/08/19 11:59 23:59 11:59 Other: Voiding Method Toilet Toilet CBC, BMP 07/07/19 07:40 07/06/19 08:33 Gen: awake, alert, nad Resp: unlabored on RA Abdo: wound c/d/i, steristrips in place, no erythema or drainage noted. + ttp near incision, appropriate to status, + bowel sounds. A/P: 33 y/o F admitted for induction at 37wks, pt with cholestasis of and worsening labs, pt failed trial of induction developed fevers with concern for chorioamnionitis now POD 4, s/p c section. afebrile +UA/UCX All d/c instructions reviewed with pt and at length, all questions answered d/w attending Dr Delong
[2019-07-08] MEDS: PRENATAL VITAMINS W/ FOLIC ACID TABLET (FP) PO SCH (09:02)
[2019-07-08] MEDS: DOCUSATE SODIUM 100 MG CAPSULE (FP) PO SCH (09:02)
[2019-07-08] MEDS: AMOX TR/POT CLAV 875MG/125MG TABLETS (FP) PO SCH (09:02)
[2019-07-08] MEDS: FERROUS SO4 325 MG TABLET (FP) PO SCH (09:02)
[2019-07-08] MEDS: POLYETHYLENE GLYCOL 3350 119 GM BTL PO SCH (09:02)
[2019-07-08] MEDS: ACETAMINOPHEN 325 MG TABLET (FP) PO PRN (09:07)
[2019-07-08] MEDS: SIMETHICONE 80 MG TAB.CHEW (FP) PO PRN (09:08)
[2019-07-08] MEDS: IBUPROFEN 600 MG TABLET (FP) PO PRN (09:08)
--- NOTE | 2019-07-08 10:19 | PN ---
Progress Note (short form) - Note Progress Note: PPOD # 4. VSS. Afebrile. FUO, likelu UTI, resolved. Feels great. PE WNL. Instructions given. Discharge. Problem List - Problems (1) 37 weeks gestation of Code(s): Z3A.37 - 37 WEEKS GESTATION OF (2) Cholestasis during , antepartum Code(s): O26.619 - LIVER AND BILIARY TRACT DISORD IN , UNSP TRIMESTER; K83.1 - OBSTRUCTION OF BILE DUCT (3) fever Code(s): O86.4 - PYREXIA OF UNKNOWN ORIGIN FOLLOWING DELIVERY
[2019-07-08 11:23] VITALS: BP 139/76; PULSE 84; TEMP 98.5
--- NOTE | 2019-07-11 16:05 | PATH ---
Surgical Pathology Report Patient Name: HENRI SANCHEZ I. [facility]. Rec. 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 Electronically Signed Flower Esteves M.D. Gross Description The specimen is received fresh labeled placenta and is a 460 gram, 18.0 x 16.0 x 2.0 cm. placenta with attached membranes and umbilical cord. The attached membranes are walker, translucent with focal opacities and insert marginally. The umbilical cord measures 19 cm. in length and averages 0.9 cm. in diameter. The cord inserts eccentrically, 2.5 cm. to the nearest margin. No true knots or strictures are identified. Cut surface of the umbilical cord reveals 3 vessels. The surface is metzger-blue with minimal fibrin deposition and appropriate caliber vessels. The maternal surface is red-brown with focal defects. Sectioning reveals red-brown, spongy parenchyma. No lesions are identified. Technical Specialist Cytology sections are submitted in three cassettes as follows: 1- membrane rolls and umbilical cord; 2-3- full thickness sections of placenta. 07/09/2019 [facility]07/09/2019
== END 2019-07-08 12:25 | disposition home or self-care (01) | DRG 540 ==
LOC: JLDR 08:15 → J3W 07-05 13:27
PROVIDERS: ADMIT Specialist; ATTEND Specialist
PROC: 10D00Z1 Extraction of Products of Conception, Low, Open Approach (ICD-10-PCS; principal; 2019-07-03)
DX: O26.62 Liver and biliary tract disorders in childbirth (principal); K83.1 Obstruction of bile duct; O99.02 Anemia complicating childbirth; D62 Acute posthemorrhagic anemia; O86.4 Pyrexia of unknown origin following delivery; O86.20 Urinary tract infection following delivery, unspecified; O61.0 Failed medical induction of labor; O62.1 Secondary uterine inertia; Z3A.37 37 weeks gestation of pregnancy; Z37.0 Single live birth
CPT/HCPCS: 36415; 36600; 71045-TC-FY; 80048; 80053; 81003; 82803; 85025; 85610; 85730; 86593; 86850; 86900; 86901; 87040; 87070; 87086; 87804; 87807; 87880; J0131

== ENCOUNTER 2020-02-01 22:42 | Emergency (ER) | payer OTHER ==
--- NOTE | 2020-02-01 22:49 | PDOC ---
Rapid Medical Evaluation Time Seen by Provider: 02/01/20 22:48 Medical Evaluation: Allergies Allergy/AdvReac Type Severity Reaction Status Date / Time meperidine [From Demerol] Allergy Severe Hives Verified 07/03/19 09:33 shellfish derived Allergy Severe Hives Verified 07/03/19 09:33 02/01/20 22:48 I have performed a brief in-person evaluation of this patient. The patient presents with a chief complaint of:nail avulsion to R 3rd finger s/p near fall tonight. No additional injuries Pertinent physical exam findings:partial nail avulsion, NAD I have ordered the following:nothing The patient will proceed to the ED for further evaluation. Discharge Disposition - Diagnosis Nail avulsion - Referrals - Patient Instructions - Post Discharge Activity
[2020-02-01 22:58] VITALS: BP 112/84; PULSE 96; TEMP 98.1; BMI 31.4
[2020-02-01] MEDS ORDERED: LIDOCAINE HCL 1%, 10 MG/ML (50 mL VIAL) INF ONE (23:20)
[2020-02-01] MEDS ORDERED: LIDOCAINE HCL 1%, 10 MG/ML (20ML VIAL) ONE (23:23)
--- NOTE | 2020-02-01 23:24 | PDOC ---
History of Present Illness - General Chief Complaint: Pain Stated Complaint: INJURED MIDDLE FINGER NAIL Time Seen by Provider: 02/01/20 22:48 - History of Present Illness Initial Comments: 02/06/20 06:24 34yo F no pertinent PMH presents from home with R 3rd finger nail avulsion s/p trauma. Mechanical trip and near fall and caught self on hand, catching nail on ground and bending backward. Fake nail and underlying nail avulsed attached at base. Cleaned with peroxide and water. No pain meds tried. Denies other injuries. Past History - Medical History Allergies/Adverse Reactions: Allergies Allergy/AdvReac Type Severity Reaction Status Date / Time meperidine [From Demerol] Allergy Severe Hives Verified 07/03/19 09:33 shellfish derived Allergy Severe Hives Verified 07/03/19 09:33 Home Medications: Ambulatory Orders Pnv No.121/Iron/Folic Acid [ Multivitamin Tablet] 1 each PO DAILY 05/14/19 Ursodiol 1 tab PO TID 06/04/19 Docusate Sodium [Colace] 100 mg PO BID #20 capsule 07/04/19 Ibuprofen 600 mg PO Q6H PRN #20 tablet 07/04/19 Iron,Carbonyl/Ascorbic Acid [Iron 100-Vitamin C Tablet] 1 each PO DAILY #30 t ablet 07/04/19 oxyCODONE HCL [Roxicodone -] 5 mg PO Q6H PRN #15 tablet MDD 5 07/04/19 Amoxicillin/Potassium Clav [Augmentin 875-125 Tablet] 1 each PO BID 4 Days #7 tablet 07/08/19 Asthma: No Cancer: No Cardiac Disorders: No COPD: No Diabetes: No HTN: No Seizures: No Thyroid Disease: No - Surgical History Cholecystectomy: Yes - Reproductive History (#): 5 Para: 4 - Psycho-Social/Smoking History Smoking History: Never smoked Have you smoked in the past 12 months: No - Substance Abuse Hx (Audit-C & DAST Scrn) How often the patient has a drink containing alcohol: Never Score: In Men: 4 or > Positive; In Women: 3 or > Positive: 0 Screen Result (Pos requires Nsg. Audit-10AR): Negative *Physical Exam - Vital Signs Last Vital Signs Temp Pulse Resp BP Pulse Ox 98.1 F 96 H 20 112/84 98 02/01/20 22:51 02/01/20 22:51 02/01/20 22:51 02/01/20 22:51 02/01/20 22:51 - Physical Exam General Appearance: Yes: Nourished, Appropriately Dressed. No: Apparent Distress HEENT: positive: VERONICA, Other (NCAT) Respiratory/Chest: negative: Respiratory Distress Extremity: positive: Normal Range of Motion, Other (R middle finger nail avulsio n attached at base, clean, no FBs. RUE neurovascularly intact.) Neurologic: positive: Alert, Normal Mood/Affect Medical Decision Making - Medical Decision Making 02/01/20 23:22 34yo F no pertinent PMH presents from home with R 3rd finger nail avulsion s/p mechanical trip and near fall, cleaned with peroxide and water. Hemodynamically stable, afebrile, neurologically intact. R middle finger nail avulsion attached at base, clean, no foreign bodies. No other injuries. Mechanical near fall - no concern for syncope or seizure. No e/o infection. No e/o fracture or dislocation. Neurovascularly intact. -pain management: nerve block with 2cc lidocaine 1%. -steri-strips applied to hold nail to finger -Will discharge home with PCP f/u. Return precautions given. Pt understands all discharge instructions and all questions were answered. Discharge - Discharge Information Problems reviewed: Yes Clinical Impression/Diagnosis: Nail avulsion Condition: Improved Disposition: HOME - Admission No - Follow up/Referral - Patient Discharge Instructions Patient Printed Discharge Instructions: DI for Nail Avulsion Injury Additional Instructions: Keep clean and don't pull off. Cut nail when home to reduce chances of getting caught. Follow up with your primary care doctor within 1 week. Return to the Emergency Department for any new or concerning symptoms including fever, vomiting, pus, or bleeding. - Post Discharge Activity
--- NOTE | 2020-02-21 19:35 | PDOC ---
Documentation entered by Viridaina Gross SCRIBE, acting as scribe for mAparo Vanegas MD. Amparo Vanegas MD: This documentation has been prepared by the nickolaseGinny Sydney, SCRIBE, under my direction and personally reviewed by me in its entirety. I confirm that the documentation accurately reflects all work, treatment, procedures, and medical decision making performed by me. Attending Attestation - Resident Resident Name: BolivaralTiki - ED Attending Attestation I have performed the following: I have examined & evaluated the patient, The case was reviewed & discussed with the resident, I agree w/resident's findings & plan, Exceptions are as noted - HPI HPI: 02/01/20 23:54 Patient is a 34 year old female with no significant past medical history who presents to the ED with an injured nail on her right middle finger. As per patient, she had a mechanical fall earlier today, falling forward onto her fake nail and bending her right middle nail backwards with it still attached at the nail bed. Allergies: Meperidine - Physicial Exam PE: 02/01/20 23:37 GENERAL: Well-appearing, well-nourished. No apparent distress. HEENT: Normocephalic, atraumatic. PERRL, EOM intact. CARDIOVASCULAR: Normal S1, S2. Regular rate and rhythm. PULMONARY: Clear to auscultation bilaterally. ABDOMEN: Soft, non-distended, non-tender. EXTREMITIES: +R middle finger nail avulsed hanging by germinal matrix Normal ROM in all four extremities. SKIN: Warm, dry. No rash NEUROLOGICAL: No focal neurological deficits. - Medical Decision Making 02/21/20 19:40 Pt stable for d/c home 02/21/20 19:40 Pt's nail was steristripped down; decision made not to pull the nail off the nail bed and not to disrupt the germinal matrix. Discharge - Discharge Information Problems reviewed: Yes Clinical Impression/Diagnosis: Nail avulsion Condition: Improved Disposition: HOME - Follow up/Referral - Patient Discharge Instructions Patient Printed Discharge Instructions: DI for Nail Avulsion Injury Additional Instructions: Keep clean and don't pull off. Cut nail when home to reduce chances of getting caught. Follow up with your primary care doctor within 1 week. Return to the Emergency Department for any new or concerning symptoms including fever, vomiting, pus, or bleeding. - Post Discharge Activity
== END 2020-02-01 23:51 | disposition home or self-care (01) ==
LOC: JER 22:42
DX: S61.302A Unspecified open wound of right middle finger with damage to nail, initial encounter (principal)
CPT/HCPCS: 99285-25